=== PATIENT | male | born 1970 | race African-American/Black ===

== ENCOUNTER 2018-09-07 17:26 | Emergency (ER) | payer SELFPAY ==
[~2018-09-07] VITALS: Ht 185.4 cm; Wt 120.2 kg
[2018-09-07 17:37] VITALS: Ht 185.4 cm; Wt 120.2 kg
[2018-09-07 19:00] VITALS: BP 151/90
== END 2018-09-07 19:12 | disposition other institution (70) ==
LOC: ED 17:26
DX: I10 Essential (primary) hypertension (principal); R51 Headache

== ENCOUNTER 2018-09-07 17:26 | Emergency (ER) | payer OTHER | END 2018-09-07 19:12 | disposition other institution (70) | LOC: ED 17:26 | DX: Z02.89 Encounter for other administrative examinations (principal) ==